=== PATIENT | male | born 1950 | race Two or more races ===

== ENCOUNTER 2024-06-01 05:50 | Day surgery (SDC) | payer OTHER ==
[2024-06-01] MEDS ORDERED: FLUMAZENIL 0.5 MG/5 ML ML IV STA (08:48)
[2024-06-01] MEDS ORDERED: fentaNYL CITRATE 50 MCG/ML AMPUL IV PUSH ONE (09:00)
[2024-06-01] MEDS ORDERED: MIDAZOLAM HCL 2 MG/2 ML VIAL IV ONE (09:00)
[2024-06-01] MEDS ORDERED: DIPHENHYDRAMINE HCL 50 MG/ML VIAL 1ML IV ONE (09:00)
== END 2024-06-01 10:20 | disposition home or self-care (01) ==
LOC: AMB-ENDOS 05:50
PROVIDERS: ATTEND Colon & Rectal Surgery
DX: D12.2 Benign neoplasm of ascending colon (principal); K57.30 Diverticulosis of large intestine without perforation or abscess without bleeding

== ENCOUNTER 2024-07-13 07:14 | Outpatient (CLI) | payer OTHER | END 2024-07-13 07:16 | disposition home or self-care (01) | LOC: TOM 07:14 | PROVIDERS: ATTEND Colon & Rectal Surgery | DX: Z12.11 Encounter for screening for malignant neoplasm of colon (principal) ==

== ENCOUNTER 2024-09-03 08:29 | Outpatient (CLI) | payer OTHER | END 2024-09-03 08:51 | disposition home or self-care (01) | LOC: TOM 08:29 | PROVIDERS: ATTEND Surgery | DX: K43.6 Other and unspecified ventral hernia with obstruction, without gangrene (principal); K40.90 Unilateral inguinal hernia, without obstruction or gangrene, not specified as recurrent ==